=== PATIENT | female | born 1960 | race African-American/Black ===

== ENCOUNTER 2017-04-15 16:34 | Emergency (ER) | payer SELFPAY ==
[~2017-04-15] VITALS: Ht 162.6 cm; Wt 65.0 kg
[2017-04-15] MEDS ORDERED: MORPHINE SULFATE 10 MG/ML CPJ IM ONE (21:15)
[2017-04-15 21:53] LABS: BASOPHILS % 0.9 % (0.0-2.0); EOSINOPHILS % 1.3 % (0.0-5.0); HEMATOCRIT. 40.4 % (36.0-48.0); HEMOGLOBIN. 13.8 g/dL (12.0-16.0); LYMPHOCYTES % 34.5 % (20.0-50.0); MEAN CORPUSCULAR HEMOGLOBIN 33.2 pg (28.0-32.0); MEAN CORPUSCULAR VOLUME 97.2 fL (81.0-99.0); MEAN PLATELET VOLUME 7.2 fl (7.4-10.4); MONOCYTES % 7.8 % (2.0-8.0); NEUTROPHILS % 55.5 % (40.0-76.0); PLATELET 286 x1000/uL (130-400); RED BLOOD CELL COUNT 4.15 mill/uL (4.2-5.4); RED CELL DISTRIBUTION WIDTH 12.9 % (11.6-14.6)
[2017-04-15 23:37] VITALS: BP 143/73
== END 2017-04-15 23:44 | disposition home or self-care (01) ==
LOC: ER 16:34
DX: H92.01 Otalgia, right ear (principal); B37.3 Candidiasis of vulva and vagina; H70.91 Unspecified mastoiditis, right ear; Z88.6 Allergy status to analgesic agent; F17.200 Nicotine dependence, unspecified, uncomplicated; F12.10 Cannabis abuse, uncomplicated
CPT/HCPCS: 36415; 70450; 85025; 96372; 99285; J2270; Z7610

== ENCOUNTER 2021-02-23 19:13 | Emergency (ER) | payer SELFPAY ==
[~2021-02-23] VITALS: Ht 157.5 cm; Wt 89.0 kg
[2021-02-23 20:54] LABS: CHLORIDE 110 mEq/L (98-107)
[2021-02-23 20:59] LABS: BASOPHILS % 0.3 % (0.0-2.0); EOSINOPHILS % 1.1 % (0.0-5.0); HEMATOCRIT. 37.1 % (36.0-48.0); HEMOGLOBIN. 12.5 g/dL (12.0-16.0); LYMPHOCYTES % 30.7 % (20.0-50.0); MEAN CORPUSCULAR HEMOGLOBIN 32.5 pg (28.0-32.0); MEAN CORPUSCULAR VOLUME 96.5 fL (81.0-99.0); MEAN PLATELET VOLUME 7.2 fl (7.4-10.4); MONOCYTES % 8.8 % (2.0-8.0); NEUTROPHILS % 59.1 % (40.0-76.0); PLATELET 277 x1000/uL (130-400); RED BLOOD CELL COUNT 3.84 mill/uL (4.2-5.4); RED CELL DISTRIBUTION WIDTH 13.6 % (11.6-14.6)
[2021-02-23 21:16] LABS: CLARITY URINE CLOUDY (CLEAR); COLOR URINE YELLOW (YELLOW); KETONES URINE NEGATIVE (NEGATIVE); LEUKOCYTE ESTERASE URINE NEGATIVE (NEGATIVE); NITRITE URINE NEGATIVE (NEGATIVE); OCCULT BLOOD URINE NEGATIVE (NEGATIVE); PH URINE 6.5 (4.5-8.0); PROTEIN URINE NEGATIVE (NEGATIVE); SPECIFIC GRAVITY URINE 1.022 (1.005-1.030)
[2021-02-23] MEDS ORDERED: TOPUD MT (21:50)
[2021-02-23] MEDS ORDERED: ACETAMINOPHEN 325MG TABLET PO ONE (22:00)
[2021-02-23 22:10] VITALS: BP 116/74
== END 2021-02-23 22:14 | disposition home or self-care (01) ==
LOC: ER 19:13
DX: K92.1 Melena (principal); K62.89 Other specified diseases of anus and rectum
CPT/HCPCS: 36415; 80053; 81003; 85025; 99283

== ENCOUNTER 2022-05-31 22:11 | Emergency (ER) | payer SELFPAY ==
[~2022-05-31 22:11] MED LIST: TOPUD MT
== END 2022-05-31 23:43 | disposition left against medical advice (07) ==
LOC: ER 22:11
DX: Z53.21 Procedure and treatment not carried out due to patient leaving prior to being seen by health care provider (principal)

== ENCOUNTER 2023-10-31 04:57 | Inpatient (IN) | payer OTHER ==
[~2023-10-31] VITALS: Ht 160 cm; Wt 59.0 kg
[2023-10-31 05:36] VITALS: O2SAT 99
[2023-10-31] MEDS: ONDANSETRON HCL 4MG/2ML INJ IV STA (07:08)
[2023-10-31] MEDS: MORPHINE SULFATE 4 MG/ML INJ (FOR IV/IM USE) IV STA (07:09)
[2023-10-31] MEDS: MORPHINE SULFATE 2 MG/ML CPJ (NOT FOR IM USE) IV NR (08:25)
[2023-10-31] MEDS: ONDANSETRON 4MG ODT PO ONE (10:04)
[2023-10-31] MEDS: DIPHENHYDRAMINE 50MG/ML VIAL IV ONE (10:04)
[2023-10-31] MEDS ORDERED: ACETAMINOPHEN 325MG TABLET PO PRN (10:15)
[2023-10-31] MEDS ORDERED: ONDANSETRON HCL 4MG/2ML INJ IV PRN (10:15)
[2023-10-31 12:30] VITALS: BP 103/74; PULSE 71; RESP 18; TEMP 97
[2023-10-31] MEDS ORDERED: LIDOCAINE HCL 4% (40MG/ML) SOLN 50ML TOP PRN (17:00)
== END 2023-10-31 15:30 | disposition left against medical advice (07) | DRG 254 ==
LOC: ER 04:57 → 6EST 07:33
PROVIDERS: ADMIT Internal Medicine; ATTEND Internal Medicine
DX: K92.1 Melena (principal); K62.89 Other specified diseases of anus and rectum; R10.13 Epigastric pain; Z53.29 Procedure and treatment not carried out because of patient's decision for other reasons; Z76.5 Malingerer [conscious simulation]; Z88.6 Allergy status to analgesic agent
CPT/HCPCS: 74176; 93005; 99285; J1200; J2270; J2405; Q0162

== ENCOUNTER 2024-07-31 17:15 | Emergency (ER) | payer MEDICAID, OTHER ==
[~2024-07-31] VITALS: Ht 157.5 cm; Wt 45.0 kg
[2024-07-31 17:37] VITALS: O2SAT 100
[2024-07-31] MEDS: DIPHENHYDRAMINE 50MG/ML VIAL IV ONE (19:16)
[2024-07-31] MEDS: MORPHINE SULFATE 4 MG/ML INJ (FOR IV/IM USE) IV STA ×2 (19:16→21:59)
[2024-07-31] MEDS: ONDANSETRON HCL 4MG/2ML INJ IV STA ×2 (19:17→22:00)
[2024-07-31] MEDS: SODIUM CHLORIDE 0.9% 1,000 ML IV ONE (20:07)
[2024-07-31 20:30] VITALS: TEMP 36.8
[2024-07-31] MEDS ORDERED: LEVOFLOXACIN 500MG PREMIX 100 ML IV ONE (21:30)
[2024-07-31] MEDS: METRONIDAZOLE 500 MG PREMIX 100 ML IV ONE (22:00)
[2024-07-31 22:06] LABS: TROPONIN I HIGH SENSITIVITY < 4 ng/L (3.0-34)
[2024-07-31 22:07] LABS: ALANINE AMINOTRANSFERASE 17 IU/L (10-49); ALBUMIN 4.6 g/dL (3.2-4.8); ASPARTATE AMINOTRANSFERASE 24 IU/L (<34); BILIRUBIN TOTAL 0.3 mg/dL (0.1-1.0)
[2024-07-31 22:08] LABS: BILIRUBIN DIRECT < 0.1 mg/dL (<=3.0); PROTEIN TOTAL 7.4 g/dL (6.0-8.3)
[2024-08-01] MEDS: ONDANSETRON HCL 4MG/2ML INJ IV STA (00:05)
[2024-08-01] MEDS: MORPHINE SULFATE 4 MG/ML INJ (FOR IV/IM USE) IV STA (00:19)
[2024-08-01 00:30] VITALS: BP 112/45; PULSE 77; RESP 11; O2SAT 100
[2024-08-01] MEDS: AMPICILLIN SOD/SULBACTAM NA 3 G in SODIUM CHLORIDE 0.9% 100 ML IV STA (00:59)
== END 2024-08-01 01:23 | disposition left against medical advice (07) ==
LOC: ER 17:15
DX: K52.9 Noninfective gastroenteritis and colitis, unspecified (principal); R10.13 Epigastric pain; Z88.6 Allergy status to analgesic agent; Z98.890 Other specified postprocedural states
CPT/HCPCS: 80076; 83690; 83735; 84484; 71045; 74176; 93005; 96361; 96365; 96375; 96376 ×2; 99285; J1200; J3490; J2405; J2270 ×2; J7030; Z7610 ×2; J0295; J7050